=== PATIENT | male | born 1955 | race Caucasian/White ===

== ENCOUNTER → 2017-02-03 | Outpatient (CLI) | payer OTHER, MEDICARE ==
--- NOTE | 2017-02-03 14:13 | CT ---
EXAMINATION TYPE: CT abdomen pelvis wo con DATE OF EXAM: 02/03/2017 COMPARISON: NONE INDICATION: Presence of pain pump DLP: 560.8 mGycm, Automated exposure control for dose reduction was used. CONTRAST: 0 mL of Omnipaque 300. Study performed without Oral Contrast TECHNIQUE: Axial images were obtained from above the diaphragm to the pubic rami in the axial plane a t 5 mm thick sections. Reconstructed images are reviewed on the computer in the coronal plane. FINDINGS: Limited CT sections are obtained the lung bases. The lung bases are clear. There is a device over t he left anterior abdomen. Additional electronic devices over the posterior left flank. CT ABDOMEN: Liver: Normal Spleen: Normal Pancreas: Normal Adrenal glands: The adrenal glands are normal. Gallbladder: Normal Kidneys: No masses are evident. No hydronephrosis is present. No cysts are present. Aorta: Essentially normal. Inferior vena cava: There is a filter within the inferior vena cava. CT PELVIS: Loops of bowel within the abdomen and pelvis are normal. Postsurgical changes are within the prox imal transverse colon. No contrast was utilized limiting the evaluation. The ascending colon may be r esected. Fecal debris is within the distal colon. Appendix: Not identified Urinary bladder: Asymmetric thickening of the urinary bladder is present with thickening along the le ft border. Genitourinary structures: Prostate contains calcification. Osseous structures: Right hip prosthesis is present. Old pubic ramus fractures present on the right. Postsurgical changes at the symphysis pubis. Screws present at the level of the sacrum. Facet degener ative changes present IMPRESSIONS: 1. Multiple postsurgical changes. 2. No abnormal fluid collection adjacent to the visualized electronic devices within the [id number] w. 3. Thickening urinary bladder wall asymmetric. Consider additional workup
== END | disposition home or self-care (01) ==
LOC: RADCTMAIN 12:28
PROVIDERS: ATTEND Surgery
DX: N32.89 Other specified disorders of bladder (principal); Z96.89 Presence of other specified functional implants; Z98.890 Other specified postprocedural states
CPT/HCPCS: 74176

== ENCOUNTER 2018-02-25 14:27 | Inpatient (IN) | payer MEDICARE ==
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
[2018-02-25 15:38] LABS: Anisocytosis Slight; Basophils % (A) 0 %; Eosinophils # (A) 0.3 k/uL (0-0.7); Eosinophils % (A) 6 %; HCT 32.2 % (39.0-53.0); HGB 9.9 gm/dL (13.0-17.5); Hypochromasia Marked; Lymphocytes # (A) 1.5 k/uL (1.0-4.8); Lymphocytes % (A) 27 %; MCH 24.7 pg (25.0-35.0); MCHC 30.6 g/dL (31.0-37.0); MCV 80.7 fL (80.0-100.0); Mean Platelet Volume 7.4; Microcytosis Slight; Monocytes # (A) 0.4 k/uL (0-1.0); Monocytes % (A) 6 %; Neutrophils # (A) 3.2 k/uL (1.3-7.7); Neutrophils % (A) 58 %; Platelet Count 412 k/uL (150-450); Poikilocytosis Slight; RBC 3.99 m/uL (4.30-5.90); RDW 17.1 % (11.5-15.5); WBC 5.6 k/uL (3.8-10.6)
[2018-02-25 15:54] LABS: Acetaminophen <10.0 ug/mL; Alcohol <10 mg/dL; Anion Gap 8 mmol/L; Blood Urea Nitrogen 13 mg/dL (9-20); Calcium 8.6 mg/dL (8.4-10.2); Carbon Dioxide 28 mmol/L (22-30); Chloride 107 mmol/L (98-107); Glucose 91 mg/dL (74-99); Potassium 3.6 mmol/L (3.5-5.1); Salicylate <1.0 mg/dL; Sodium 143 mmol/L (137-145)
[2018-02-25 18:15] LABS: Appearance,Urine Clear (Clear); Bilirubin,Urine Negative (Negative); Blood,Urine Negative (Negative); Color,Urine Yellow; Glucose,Urine (UA) Negative (Negative); Ketones,Urine Negative (Negative); Leukocyte Esterase,Urine Negative (Negative); Mucus,Urine Rare /hpf; Nitrite,Urine Negative (Negative); PH, Urine 6.5 (5.0-8.0); Protein,Urine 1+ (Negative); RBC,Urine <1 /hpf (0-5); Specific Gravity,Urine 1.022 (1.001-1.035); Squamous Epithelial Cell,Urine 1 /hpf (0-4); WBC,Urine 1 /hpf (0-5)
[2018-02-25 18:20] LABS: Cocaine Screen,Urine Not Detected (NotDetected); Phencyclidine Screen,Urine Not Detected (NotDetected); Urn Cannabinoid Scrn Not Detected (NotDetected)
[2018-02-25 18:21] LABS: Amphetamine Screen,Urine Detected (NotDetected); Barbiturate Screen,Urine Not Detected (NotDetected); Benzodiazepines Screen,Urine Detected (NotDetected); Methadone Screen, Urine Not Detected (NotDetected); Opiate Screen,Urine Detected (NotDetected); Oxycodone Screen, Urine Not Detected (NotDetected); Tricyclic Antidepressant,Urine Detected (NotDetected)
[2018-02-25] MEDS ORDERED: LORazepam 1 MG TAB PO STA (19:11)
[2018-02-25] MEDS ORDERED: MAGNESIUM HYDROXIDE 2,400 MG/10 ML CUP PO PRN (19:45)
[2018-02-25] MEDS ORDERED: ZIPRASIDONE 20 MG VIAL IM PRN (19:45)
[2018-02-25] MEDS ORDERED: MAG HYDROX/AL HYDROX/SIMETH 30 ML CUP PO PRN (19:45)
[2018-02-25] MEDS ORDERED: ACETAMINOPHEN TAB 325 MG TAB PO PRN (19:45)
[2018-02-25] MEDS ORDERED: IBUPROFEN 800 MG TAB PO PRN (19:51)
[2018-02-25] MEDS ORDERED: HYDROcodone/APAP 5-325MG 1 EACH TAB PO PRN (19:51)
[2018-02-25] MEDS: CHOLECALCIFEROL 1,000 UNIT TAB PO SCH (21:19)
[2018-02-25] MEDS: ATORVASTATIN 40 MG TAB PO SCH (21:19)
[2018-02-25] MEDS: ARTIFICIAL TEARS OINTMENT 3.5 GM TUBE BOTH EYES SCH (21:19)
[2018-02-25] MEDS: ARTIFICIAL TEARS-HYPROMELLOSE DROPS 15 ML BTL BOTH EYES SCH (21:19)
[2018-02-25] MEDS: GABAPENTIN 300 MG CAP PO SCH (21:20)
[2018-02-25] MEDS: BACLOFEN 10 MG TAB PO SCH (21:20)
[2018-02-25] MEDS: MELATONIN 5 MG TABLET PO SCH (21:20)
[2018-02-25] MEDS: QUEtiapine 50 MG TAB PO SCH (21:20)
[2018-02-25] MEDS: DONEPEZIL 10 MG TAB PO SCH (21:20)
[2018-02-25] MEDS: DIAZEPAM 5 MG TAB PO SCH (21:20)
[2018-02-26] MEDS ORDERED: VENLAFAXINE HCL 75 MG TAB PO SCH (09:00)
[2018-02-26] MEDS ORDERED: HYDROcodone/APAP 10-325MG 1 EACH TAB PO PRN (09:28)
[2018-02-26] MEDS: CHOLECALCIFEROL 1,000 UNIT TAB PO SCH ×2 (10:34→21:31)
[2018-02-26] MEDS: BACLOFEN 10 MG TAB PO SCH ×3 (10:34→21:50)
[2018-02-26] MEDS: ASPIRIN 81 MG PO SCH (10:34)
[2018-02-26] MEDS: GABAPENTIN 300 MG CAP PO SCH ×3 (10:34→21:26)
[2018-02-26] MEDS: ARTIFICIAL TEARS-HYPROMELLOSE DROPS 15 ML BTL BOTH EYES SCH ×3 (10:35→21:28)
[2018-02-26] MEDS: VENLAFAXINE HCL ER 150 MG CAP PO SCH (10:37)
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
--- NOTE | 2018-02-26 15:48 | XR ---
EXAMINATION TYPE: XR hand complete LT DATE OF EXAM: 02/26/2018 CLINICAL HISTORY: pain TECHNIQUE: Frontal, lateral and oblique images of the left hand are obtained. COMPARISON: None. FINDINGS: There is no acute fracture/dislocation evident. The joint spaces appear mildly narrowed. T he overlying soft tissue appears unremarkable. IMPRESSION: There is no acute fracture or dislocation. ICD 10 NO FRACTURE, INITIAL EVALUATION
--- NOTE | 2018-02-26 15:50 | XR ---
EXAMINATION TYPE: XR foot complete RT DATE OF EXAM: 02/26/2018 CLINICAL HISTORY: pain TECHNIQUE: Frontal, lateral and oblique images of the right foot are obtained. COMPARISON: None. FINDINGS: There is no acute fracture/dislocation evident. The joint spaces appear within normal richard its. The overlying soft tissue appears unremarkable. IMPRESSION: There is no acute fracture or dislocation. ICD 10 NO FRACTURE, INITIAL EVALUATION
[2018-02-26] MEDS ORDERED: QUEtiapine 50 MG TAB PO SCH (17:30)
[2018-02-26] MEDS: ATORVASTATIN 40 MG TAB PO SCH (21:26)
[2018-02-26] MEDS: QUEtiapine 50 MG TAB PO SCH (21:26)
[2018-02-26] MEDS: DIAZEPAM 5 MG TAB PO SCH (21:26)
[2018-02-26] MEDS: MELATONIN 5 MG TABLET PO SCH (21:26)
[2018-02-26] MEDS: DONEPEZIL 10 MG TAB PO SCH (21:28)
[2018-02-26] MEDS: ARTIFICIAL TEARS OINTMENT 3.5 GM TUBE BOTH EYES SCH (21:30)
[2018-02-26 21:36] LABS: Hemoglobin A1C 5.9 % (4.0-6.0)
[2018-02-26] MEDS: MORPHINE SULFATE ER 15 MG TABLET PO SCH (21:49)
[2018-02-27] MEDS: HYDROcodone/APAP 5-325MG 1 EACH TAB PO PRN ×2 (06:18→17:02)
[2018-02-27] MEDS: ARTIFICIAL TEARS-HYPROMELLOSE DROPS 15 ML BTL BOTH EYES SCH ×3 (10:11→21:17)
[2018-02-27] MEDS: CHOLECALCIFEROL 1,000 UNIT TAB PO SCH ×2 (10:12→21:17)
[2018-02-27] MEDS: GABAPENTIN 300 MG CAP PO SCH ×3 (10:12→21:16)
[2018-02-27] MEDS: VENLAFAXINE HCL ER 150 MG CAP PO SCH (10:12)
[2018-02-27] MEDS: BACLOFEN 10 MG TAB PO SCH ×3 (10:12→21:15)
[2018-02-27] MEDS: ASPIRIN 81 MG PO SCH (10:12)
[2018-02-27] MEDS: MORPHINE SULFATE ER 15 MG TABLET PO SCH ×2 (10:13→21:16)
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
[2018-02-27] MEDS: MELATONIN 5 MG TABLET PO SCH (21:15)
[2018-02-27] MEDS: QUEtiapine 200 MG TAB PO SCH (21:15)
[2018-02-27] MEDS: ARTIFICIAL TEARS OINTMENT 3.5 GM TUBE BOTH EYES SCH (21:15)
[2018-02-27] MEDS: DONEPEZIL 10 MG TAB PO SCH (21:16)
[2018-02-27] MEDS: ATORVASTATIN 40 MG TAB PO SCH (21:16)
[2018-02-27] MEDS: DIAZEPAM 5 MG TAB PO SCH (21:17)
[2018-02-28] MEDS: CHOLECALCIFEROL 1,000 UNIT TAB PO SCH ×2 (09:08→20:40)
[2018-02-28] MEDS: ARTIFICIAL TEARS-HYPROMELLOSE DROPS 15 ML BTL BOTH EYES SCH ×3 (09:08→21:25)
[2018-02-28] MEDS: ASPIRIN 81 MG PO SCH (09:08)
[2018-02-28] MEDS: BACLOFEN 10 MG TAB PO SCH ×4 (09:08→22:23)
[2018-02-28] MEDS: GABAPENTIN 300 MG CAP PO SCH ×4 (09:09→22:23)
[2018-02-28] MEDS: QUEtiapine 25 MG TAB PO SCH (09:09)
[2018-02-28] MEDS: VENLAFAXINE HCL ER 150 MG CAP PO SCH (09:09)
[2018-02-28] MEDS: MORPHINE SULFATE ER 15 MG TABLET PO SCH ×2 (09:09→20:39)
[2018-02-28 12:05] VITALS: BMI 27.4
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
[2018-02-28] MEDS: HYDROcodone/APAP 5-325MG 1 EACH TAB PO PRN (17:29)
[2018-02-28] MEDS: BACITRACIN 500 UNIT/GM OINT 28.4 GM TUBE TOPICAL SCH ×2 (20:39→21:43)
[2018-02-28] MEDS: MELATONIN 5 MG TABLET PO SCH (20:39)
[2018-02-28] MEDS: ATORVASTATIN 40 MG TAB PO SCH (20:39)
[2018-02-28] MEDS: ARTIFICIAL TEARS OINTMENT 3.5 GM TUBE BOTH EYES SCH ×2 (20:39→21:27)
[2018-02-28] MEDS: QUEtiapine 200 MG TAB PO SCH (20:39)
[2018-02-28] MEDS: DIAZEPAM 5 MG TAB PO SCH (20:40)
[2018-02-28] MEDS: DONEPEZIL 10 MG TAB PO SCH (20:40)
--- NOTE | 2018-02-28 21:02 | PN ---
PROGRESS NOTE DATE OF SERVICE: 02/28/2018 PRESENT COMPLAINT: Wound on the right toe. INTERVAL HISTORY: This patient is admitted to the psych unit with depression. Patient has ulcer on the right big toe and second toe. He thinks it has come on for about a month. The patient has not been putting any medications, has not sought medical attention for the same. Denies any pain. There is no drainage. REVIEW OF SYSTEMS: Done for constitutional, cardiovascular, GI, pulmonary; relevant findings as above. CURRENT MEDICATIONS: Reviewed. EXAMINATION: Temperature 98.2, pulse 73, respiratory 20, blood pressure 126/78 pulse ox 95% on room air. GENERAL APPEARANCE: Sitting up, comfortable. EYES: Pupils. Conjunctivae normal. HEENT: External nose and ears normal. Oral cavity normal. NECK: JVD not raised. Mass not palpable. RESPIRATORY: Effort normal. LUNGS: Diminished breath sounds. CARDIOVASCULAR: First and second sounds normal. No edema. ABDOMEN: Soft, nontender. Liver and spleen not palpable. MUSCULOSKELETAL/EXTREMITIES: Patient has an ulcer on the dorsum of the right foot 2nd toe with some ascending cellulitis. Also dryness of the right big toe with minimal tenderness. INVESTIGATIONS: White count 5.6, hemoglobin 9.9. ASSESSMENT: 1. Acute cellulitis with wound on the right 2nd toe, probably from local trauma, and dry skin with superficial ulcer on the right foot big toe. 2. Chronic nicotine dependence. Patient is a cigarette smoker. 3. Peripheral arterial disease. 4. Hypercholesteremia for which patient is on Lipitor. 5. Chronic muscle spasms for which patient takes baclofen. 6. Chronic pain for which patient is on long-acting morphine and Marvin and Neurontin. PLAN: At this point, we will start the patient on Keflex 500 mg 4 times a day for a total of 10 days. Will also use bacitracin ointment with dressing. The patient should follow up with Dr. Modesto Soni upon discharge. Care was discussed with the patient. Thank you, Dr. Schroeder. MMJULIETAL / KAIN: [phone] /
[2018-02-28] MEDS: CEPHALEXIN 500 MG CAP PO SCH ×2 (21:16→21:43)
[2018-03-01] MEDS: HYDROcodone/APAP 5-325MG 1 EACH TAB PO PRN (05:50)
[2018-03-01] MEDS: ASPIRIN 81 MG PO SCH (08:39)
[2018-03-01] MEDS: BACLOFEN 10 MG TAB PO SCH ×3 (08:39→21:36)
[2018-03-01] MEDS: CEPHALEXIN 500 MG CAP PO SCH ×4 (08:39→21:36)
[2018-03-01] MEDS: BACITRACIN 500 UNIT/GM OINT 28.4 GM TUBE TOPICAL SCH ×2 (08:39→21:36)
[2018-03-01] MEDS: ARTIFICIAL TEARS-HYPROMELLOSE DROPS 15 ML BTL BOTH EYES SCH ×4 (08:39→21:41)
[2018-03-01] MEDS: GABAPENTIN 300 MG CAP PO SCH ×3 (08:40→21:36)
[2018-03-01] MEDS: MORPHINE SULFATE ER 15 MG TABLET PO SCH ×2 (08:40→20:48)
[2018-03-01] MEDS: CHOLECALCIFEROL 1,000 UNIT TAB PO SCH ×2 (08:40→20:48)
[2018-03-01] MEDS: QUEtiapine 25 MG TAB PO SCH (08:41)
[2018-03-01] MEDS: VENLAFAXINE HCL ER 150 MG CAP PO SCH (08:41)
[2018-03-01 13:04] LABS: Appearance,Urine Clear (Clear); Bilirubin,Urine Negative (Negative); Blood,Urine Negative (Negative); Color,Urine Light Yellow; Glucose,Urine (UA) Negative (Negative); Ketones,Urine Negative (Negative); Leukocyte Esterase,Urine Negative (Negative); Nitrite,Urine Negative (Negative); Protein,Urine Negative (Negative); Specific Gravity,Urine 1.009 (1.001-1.035); Urobilinogen,Urine <2.0 mg/dL (<2.0)
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
[2018-03-01] MEDS: DIAZEPAM 5 MG TAB PO SCH (20:48)
[2018-03-01] MEDS: MELATONIN 5 MG TABLET PO SCH (20:48)
[2018-03-01] MEDS: QUEtiapine 200 MG TAB PO SCH (20:48)
[2018-03-01] MEDS: DONEPEZIL 10 MG TAB PO SCH (20:48)
[2018-03-01] MEDS: ATORVASTATIN 40 MG TAB PO SCH (20:48)
[2018-03-01] MEDS: ARTIFICIAL TEARS OINTMENT 3.5 GM TUBE BOTH EYES SCH (20:48)
[2018-03-02] MEDS: MORPHINE SULFATE ER 15 MG TABLET PO SCH ×2 (08:35→20:42)
[2018-03-02] MEDS: ARTIFICIAL TEARS-HYPROMELLOSE DROPS 15 ML BTL BOTH EYES SCH ×3 (08:35→20:44)
[2018-03-02] MEDS: QUEtiapine 25 MG TAB PO SCH (08:35)
[2018-03-02] MEDS: BACLOFEN 10 MG TAB PO SCH ×3 (08:35→20:34)
[2018-03-02] MEDS: ASPIRIN 81 MG PO SCH (08:35)
[2018-03-02] MEDS: CHOLECALCIFEROL 1,000 UNIT TAB PO SCH ×2 (08:35→20:34)
[2018-03-02] MEDS: CEPHALEXIN 500 MG CAP PO SCH ×4 (08:35→20:48)
[2018-03-02] MEDS: GABAPENTIN 300 MG CAP PO SCH ×3 (08:35→20:48)
[2018-03-02] MEDS: VENLAFAXINE HCL ER 150 MG CAP PO SCH (08:35)
[2018-03-02] MEDS: BACITRACIN 500 UNIT/GM OINT 28.4 GM TUBE TOPICAL SCH ×2 (08:43→20:40)
[2018-03-02 11:55] LABS: Urine Alcohol Negative (Negative); Urine Barbiturate Negative (Negative); Urine Cocaine Negative (Negative); Urine Methadone Negative (Negative); Urine Opiates Positive (Negative); Urine Phencyclidine Negative (Negative)
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
[2018-03-02] MEDS: DIAZEPAM 5 MG TAB PO SCH (20:34)
[2018-03-02] MEDS: ARTIFICIAL TEARS OINTMENT 3.5 GM TUBE BOTH EYES SCH (20:34)
[2018-03-02] MEDS: QUEtiapine 200 MG TAB PO SCH (20:34)
[2018-03-02] MEDS: MELATONIN 5 MG TABLET PO SCH (20:34)
[2018-03-02] MEDS: DONEPEZIL 10 MG TAB PO SCH (20:35)
[2018-03-02] MEDS: ATORVASTATIN 40 MG TAB PO SCH (20:35)
[2018-03-03] MEDS: HYDROcodone/APAP 5-325MG 1 EACH TAB PO PRN (05:40)
[2018-03-03] MEDS: BACLOFEN 10 MG TAB PO SCH ×3 (05:54→21:14)
[2018-03-03] MEDS: ARTIFICIAL TEARS-HYPROMELLOSE DROPS 15 ML BTL BOTH EYES SCH ×4 (09:11→21:26)
[2018-03-03] MEDS: BACITRACIN 500 UNIT/GM OINT 28.4 GM TUBE TOPICAL SCH ×2 (09:12→21:13)
[2018-03-03] MEDS: ASPIRIN 81 MG PO SCH (09:12)
[2018-03-03] MEDS: CEPHALEXIN 500 MG CAP PO SCH ×4 (09:13→21:13)
[2018-03-03] MEDS: QUEtiapine 25 MG TAB PO SCH (09:13)
[2018-03-03] MEDS: MORPHINE SULFATE ER 15 MG TABLET PO SCH ×2 (09:13→21:14)
[2018-03-03] MEDS: CHOLECALCIFEROL 1,000 UNIT TAB PO SCH ×2 (09:13→21:14)
[2018-03-03] MEDS: GABAPENTIN 300 MG CAP PO SCH ×3 (09:13→23:47)
[2018-03-03] MEDS: VENLAFAXINE HCL ER 150 MG CAP PO SCH (11:00)
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
[2018-03-03] MEDS: ATORVASTATIN 40 MG TAB PO SCH (21:13)
[2018-03-03] MEDS: QUEtiapine 200 MG TAB PO SCH (21:13)
[2018-03-03] MEDS: ARTIFICIAL TEARS OINTMENT 3.5 GM TUBE BOTH EYES SCH (21:13)
[2018-03-03] MEDS: DONEPEZIL 10 MG TAB PO SCH (21:13)
[2018-03-03] MEDS: DIAZEPAM 5 MG TAB PO SCH (21:14)
[2018-03-03] MEDS: MELATONIN 5 MG TABLET PO SCH (21:14)
[2018-03-04] MEDS: MORPHINE SULFATE ER 15 MG TABLET PO SCH ×2 (07:57→22:06)
[2018-03-04] MEDS: BACLOFEN 10 MG TAB PO SCH ×3 (07:57→22:07)
[2018-03-04] MEDS: CEPHALEXIN 500 MG CAP PO SCH ×4 (07:57→22:06)
[2018-03-04] MEDS: QUEtiapine 25 MG TAB PO SCH (07:57)
[2018-03-04] MEDS: VENLAFAXINE HCL ER 150 MG CAP PO SCH (07:57)
[2018-03-04] MEDS: GABAPENTIN 300 MG CAP PO SCH ×3 (07:57→22:06)
[2018-03-04] MEDS: ASPIRIN 81 MG PO SCH (07:57)
[2018-03-04] MEDS: ARTIFICIAL TEARS-HYPROMELLOSE DROPS 15 ML BTL BOTH EYES SCH ×4 (07:57→22:13)
[2018-03-04] MEDS: CHOLECALCIFEROL 1,000 UNIT TAB PO SCH ×2 (07:59→22:06)
[2018-03-04] MEDS: BACITRACIN 500 UNIT/GM OINT 28.4 GM TUBE TOPICAL SCH ×2 (08:00→21:18)
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
[2018-03-04] MEDS: HYDROcodone/APAP 5-325MG 1 EACH TAB PO PRN (18:53)
[2018-03-04] MEDS: DONEPEZIL 10 MG TAB PO SCH (22:06)
[2018-03-04] MEDS: QUEtiapine 200 MG TAB PO SCH (22:06)
[2018-03-04] MEDS: ARTIFICIAL TEARS OINTMENT 3.5 GM TUBE BOTH EYES SCH (22:06)
[2018-03-04] MEDS: MELATONIN 5 MG TABLET PO SCH (22:06)
[2018-03-04] MEDS: DIAZEPAM 5 MG TAB PO SCH (22:06)
[2018-03-04] MEDS: ATORVASTATIN 40 MG TAB PO SCH (22:06)
[2018-03-05] MEDS: BACITRACIN 500 UNIT/GM OINT 28.4 GM TUBE TOPICAL SCH ×2 (09:12→20:36)
[2018-03-05] MEDS: ASPIRIN 81 MG PO SCH (09:12)
[2018-03-05] MEDS: CHOLECALCIFEROL 1,000 UNIT TAB PO SCH ×2 (09:13→21:07)
[2018-03-05] MEDS: CEPHALEXIN 500 MG CAP PO SCH ×4 (09:13→21:07)
[2018-03-05] MEDS: GABAPENTIN 300 MG CAP PO SCH ×3 (09:13→21:07)
[2018-03-05] MEDS: QUEtiapine 25 MG TAB PO SCH (09:13)
[2018-03-05] MEDS: VENLAFAXINE HCL ER 150 MG CAP PO SCH (09:13)
[2018-03-05] MEDS: BACLOFEN 10 MG TAB PO SCH ×3 (09:13→21:07)
[2018-03-05] MEDS: MORPHINE SULFATE ER 15 MG TABLET PO SCH ×2 (09:15→21:08)
[2018-03-05] MEDS: ARTIFICIAL TEARS-HYPROMELLOSE DROPS 15 ML BTL BOTH EYES SCH ×3 (09:17→21:17)
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
[2018-03-05] MEDS: DIAZEPAM 5 MG TAB PO SCH (21:07)
[2018-03-05] MEDS: DONEPEZIL 10 MG TAB PO SCH (21:07)
[2018-03-05] MEDS: QUEtiapine 200 MG TAB PO SCH (21:07)
[2018-03-05] MEDS: ATORVASTATIN 40 MG TAB PO SCH (21:07)
[2018-03-05] MEDS: MELATONIN 5 MG TABLET PO SCH (21:08)
[2018-03-05] MEDS: ARTIFICIAL TEARS OINTMENT 3.5 GM TUBE BOTH EYES SCH (21:18)
[2018-03-06 06:38] VITALS: BP 120/56; PULSE 73; RESP 16; TEMP 98.1
[2018-03-06] MEDS: MORPHINE SULFATE ER 15 MG TABLET PO SCH (09:07)
[2018-03-06] MEDS: CHOLECALCIFEROL 1,000 UNIT TAB PO SCH (09:07)
[2018-03-06] MEDS: VENLAFAXINE HCL ER 150 MG CAP PO SCH (09:07)
[2018-03-06] MEDS: GABAPENTIN 300 MG CAP PO SCH (09:07)
[2018-03-06] MEDS: QUEtiapine 25 MG TAB PO SCH (09:07)
[2018-03-06] MEDS: BACLOFEN 10 MG TAB PO SCH (09:07)
[2018-03-06] MEDS: ASPIRIN 81 MG PO SCH (09:07)
[2018-03-06] MEDS: CEPHALEXIN 500 MG CAP PO SCH ×2 (09:07→12:48)
[2018-03-06] MEDS: ARTIFICIAL TEARS-HYPROMELLOSE DROPS 15 ML BTL BOTH EYES SCH (09:09)
[2018-03-06] MEDS: BACITRACIN 500 UNIT/GM OINT 28.4 GM TUBE TOPICAL SCH ×2 (09:09→12:36)
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
== END 2018-03-06 15:46 | disposition home or self-care (01) | DRG 881 ==
LOC: EC 14:27 → 3MHU 19:23
PROVIDERS: ADMIT Psychiatry & Neurology Psychiatry; ATTEND Psychiatry & Neurology Psychiatry
DX: F32.9 Major depressive disorder, single episode, unspecified (principal); R45.851 Suicidal ideations; L97.511 Non-pressure chronic ulcer of other part of right foot limited to breakdown of skin; L97.521 Non-pressure chronic ulcer of other part of left foot limited to breakdown of skin; R41.89 Other symptoms and signs involving cognitive functions and awareness; F90.9 Attention-deficit hyperactivity disorder, unspecified type; F41.9 Anxiety disorder, unspecified; I73.9 Peripheral vascular disease, unspecified; L03.031 Cellulitis of right toe; M21.371 Foot drop, right foot; G89.29 Other chronic pain; F17.210 Nicotine dependence, cigarettes, uncomplicated; Z71.6 Tobacco abuse counseling; Z79.82 Long term (current) use of aspirin; Z79.891 Long term (current) use of opiate analgesic; Z79.899 Other long term (current) drug therapy; Z87.820 Personal history of traumatic brain injury; Z87.81 Personal history of (healed) traumatic fracture; Z86.14 Personal history of Methicillin resistant Staphylococcus aureus infection; Z93.3 Colostomy status; Z96.0 Presence of urogenital implants; Z88.8 Allergy status to other drugs, medicaments and biological substances; E78.00 Pure hypercholesterolemia, unspecified; Z87.828 Personal history of other (healed) physical injury and trauma; M62.838 Other muscle spasm
CPT/HCPCS: 36415; 80048; 80061; 80306; 80320; 81001; 81003; 82075; 83036; 83520; 84443; 85025; 93005; 99285

== ENCOUNTER 2018-04-09 10:59 | Day surgery (SDC) | payer MEDICARE ==
[2018-04-07 13:39] VITALS: BMI 18.7
[~2018-04-09 10:59] MED LIST: LACTATED RINGERS 1,000 ML IV SCH
[2018-04-09 11:48] VITALS: RESP 16; TEMP 98.1
[2018-04-09] MEDS ORDERED: LIDOCAINE 1% INJ 10MG/ML (20 ML MDV) ONE (12:32)
[2018-04-09] MEDS ORDERED: PROPOFOL 10 MG/ML 20 ML VIAL IV ONE (12:32)
--- NOTE | 2018-04-09 13:10 | P.PCN ---
Date of Procedure: 04/09/18 Procedure(s) Performed: Procedures: 1. Esophagogastroduodenoscopy and biopsy. 2. Attempted colonoscopy. Preoperative diagnosis: Iron deficiency anemia. Postoperative diagnosis: 1. Small sliding hiatal hernia with no obvious esophagitis or complicated reflux disease. 2. Mild antral gastritis. 3. Could not advance the colonoscopes safely proximal to the distal sigmoid. 4. Patient will undergo barium enema to complete this evaluation. Preparation: HalfLytely prep. Sedation: Was provided by anesthesia. Brief clinical history: The patient is a 62-year-old male who is scheduled for this evaluation because of iron deficiency anemia. The patient had no prior exams and this evaluation is to assess for peptic ulcer disease, neoplasia or other pathology. Procedure: With the patient on his left lateral decubitus position and after informed consent and adequate sedation, I passed the Olympus-GIF 160 video upper endoscope through the cricopharyngeus down the esophagus. GE junction was around 39 cm from the incisors and there was a small sliding hiatal hernia but no obvious esophagitis or complicated reflux disease. The endoscope was then passed into the stomach which was insufflated with air and inspected in detail including the retroflex view in the cardia. There was some minimal mottling and erythema in the antrum but no ulcers or erosions. Pyloric channel , duodenal bulb, post bulbar area and descending duodenum appeared healthy. Because of his iron deficiency anemia, I obtained biopsies from the duodenum in addition to biopsies from the antrum and esophagus then the endoscope was withdrawn and I proceeded with the colonoscopy. Perianal area did not show any fissures or fistulas. There were no masses felt on digital rectal examination. The Olympus CFQ 160L video colonoscope was initially used and was inserted in the rectum in the usual fashion. I was not able to advance it safely proximal to the distal sigmoid so I exchanged it for the pediatric colonoscope. I was not able to advance this scope safely either. In the rectum and distal sigmoid no obvious pathology or bleeding was noted. The patient tolerated the procedure well. Plan: The patient was reassured. Will try to get him to have an air-contrast barium enema today to complete his evaluation. Further plans based on his course and biopsy results as well as the results of the barium enema. I will keep you updated on his progress.
[2018-04-09 13:20] VITALS: BP 117/69; PULSE 53
--- NOTE | 2018-04-09 17:54 | FL ---
EXAMINATION TYPE: FL single contrast barium enema DATE OF EXAM: 04/09/2018 COMPARISON: Correlation CT 02/03/2017 HISTORY: 62-year-old male incomplete colonoscopy TECHNIQUE: A single contrast barium enema study is performed. FINDINGS: Tube Blower view of the abdomen shows prominent air throughout the colon and within right abdominal small b owel loops. There is an IVC filter, spinal stimulator generator with leads extending to the lower tho racic spinal canal, percutaneous screw fixation of the left SI joint, plate and screw fixation across the pubic symphysis, and antegrade intramedullary nailing of the proximal right femur partially visu alized. Surgical material projects at the right abdomen. Mesh material projecting along the anterior lower pelvis. Nonobstructive bowel gas pattern. Single contrast exam causes some limitation assessment of small polyps. There is evidence of prior pa rtial right hemicolectomy with ileocolonic anastomosis at the level of the hepatic flexure. No annular or constricting lesion is identified throughout the colon. No sizable polyp is seen. Again , assessment for polyps is limited. There is prominent reflux into multiple ileal small bowel loops in the right side of the abdomen. The ileocolonic anastomosis is visualized. IMPRESSION: 1. Prior right hemicolectomy with ileocolonic anastomosis at the level of the hepatic flexure. 2. Study was performed as a single contrast barium enema due to patient's condition. There is no mert lar or constricting lesion or sizable polyp. Assessment for small polyps is limited on this single co ntrast study.
== END 2018-04-09 13:59 | disposition home or self-care (01) ==
LOC: ORWHC2ENDO 10:59
DX: K29.50 Unspecified chronic gastritis without bleeding (principal); D50.9 Iron deficiency anemia, unspecified; K44.9 Diaphragmatic hernia without obstruction or gangrene; E78.5 Hyperlipidemia, unspecified; K29.80 Duodenitis without bleeding; K21.0 Gastro-esophageal reflux disease with esophagitis; Z72.0 Tobacco use; Z79.891 Long term (current) use of opiate analgesic; Z79.82 Long term (current) use of aspirin; Z79.1 Long term (current) use of non-steroidal anti-inflammatories (NSAID); Z79.899 Other long term (current) drug therapy; Z87.820 Personal history of traumatic brain injury; Z88.8 Allergy status to other drugs, medicaments and biological substances
CPT/HCPCS: 88305; 74270; 43239; 45330; J2001; J2704

== ENCOUNTER → 2018-06-04 | Outpatient (CLI) | payer MEDICARE ==
--- NOTE | 2018-06-05 09:16 | XR ---
EXAMINATION TYPE: XR Hip Complete RT DATE OF EXAM: 06/04/2018 COMPARISON: None HISTORY: Fall, pain TECHNIQUE: 2 view right hip FINDINGS: Femoral head articulates with the acetabulum. Medullary prema is present from proximal femora l fracture. IMPRESSION: 1. No acute fracture.
== END | disposition home or self-care (01) ==
LOC: RADXRMAIN 16:27
PROVIDERS: ATTEND Physician Assistant
DX: S79.911A Unspecified injury of right hip, initial encounter (principal)
CPT/HCPCS: 73502

== ENCOUNTER → 2018-06-22 | Outpatient (CLI) | payer OTHER, MEDICARE ==
[2018-06-22 08:55] LABS: Anisocytosis Slight; HCT 32.4 % (39.0-53.0); HGB 9.2 gm/dL (13.0-17.5); Hypochromasia Marked; MCH 21.3 pg (25.0-35.0); MCHC 28.3 g/dL (31.0-37.0); MCV 75.2 fL (80.0-100.0); Mean Platelet Volume 6.2; Microcytosis Moderate; Platelet Count 402 k/uL (150-450); RBC 4.31 m/uL (4.30-5.90); RDW 17.8 % (11.5-15.5)
[2018-06-22 09:02] LABS: ALT 15 U/L (21-72); AST 14 U/L (17-59); Albumin 3.3 g/dL (3.5-5.0); Alkaline Phosphatase 86 U/L (38-126); Anion Gap 8 mmol/L; Blood Urea Nitrogen 19 mg/dL (9-20); Carbon Dioxide 26 mmol/L (22-30); Chloride 107 mmol/L (98-107); Glucose 113 mg/dL (74-99); Potassium 4.2 mmol/L (3.5-5.1); Sodium 141 mmol/L (137-145); Total Bilirubin 0.2 mg/dL (0.2-1.3); Total Protein 6.1 g/dL (6.3-8.2)
--- NOTE | 2018-06-22 16:30 | NM ---
EXAMINATION TYPE: NM bone 3 phase DATE OF EXAM: 06/22/2018 COMPARISON: Radiograph 02/26/2018 HISTORY: 63-year-old male evaluated for osteomyelitis. Patient with open sore, swelling, and redness of the right second toe for over 5 months. Technique: Triple phase bone scintigraphy was performed following the injection of 24.7 mCi Tc 99m MD P. Immediate and pool images and 4.5 hours post injection images acquired. Imaging was performed of the bilateral distal lower extremities. FINDINGS: Flow images show asymmetric right forefoot hyperemia. Pool images show focal increased uptake at the mid aspect of the right forefoot. Delayed images show corresponding intense focal uptake in the same area. IMPRESSION: Three-phase positive bone scan involving the right forefoot localizing to the region of the second to e. Given the patient's history of an ulcer in this location, findings are highly suggestive of osteom yelitis.
[2018-06-22 18:19] LABS: Hemoglobin A1C 5.8 % (4.0-6.0)
== END | disposition home or self-care (01) ==
LOC: RADNMMAIN 07:52
PROVIDERS: ATTEND Thoracic Surgery (Cardiothoracic Vascular Surgery)
DX: M86.8X8 Other osteomyelitis, other site (principal); E63.8 Other specified nutritional deficiencies
CPT/HCPCS: 84134; 80053; 85027; 83036; 78315; A9503

== ENCOUNTER 2018-07-04 08:42 | Emergency (ER) | payer OTHER, MEDICARE ==
[2018-07-04] MEDS ORDERED: SODIUM CHLORIDE 0.9% 1,000 ML IV STA (08:54)
[2018-07-04] MEDS ORDERED: RX INFO: IV CONTRAST WAS GIVEN 1 EACH MISC MISCELLANE PRN (08:55)
[2018-07-04] MEDS ORDERED: ONDANSETRON 4 MG/2 ML VIAL IVP STA (09:02)
[2018-07-04] MEDS ORDERED: MORPHINE SULFATE 4 MG/ML SYRINGE IVP STA (09:02)
[2018-07-04 09:25] LABS: ALT 19 U/L (21-72); AST 17 U/L (17-59); Alkaline Phosphatase 79 U/L (38-126); Anion Gap 7 mmol/L; Blood Urea Nitrogen 10 mg/dL (9-20); Calcium 8.9 mg/dL (8.4-10.2); Carbon Dioxide 27 mmol/L (22-30); Chloride 109 mmol/L (98-107); Glucose 91 mg/dL (74-99); Potassium 3.8 mmol/L (3.5-5.1); Sodium 143 mmol/L (137-145); Total Bilirubin 0.2 mg/dL (0.2-1.3); Total Protein 5.9 g/dL (6.3-8.2)
[2018-07-04 09:27] LABS: INR 1.1 (<1.2); Partial Thromboplastin Time 25.4 sec (22.0-30.0); Prothrombin Time 10.9 sec (9.0-12.0)
[2018-07-04 09:34] LABS: Anisocytosis Slight; Basophils % (A) 0 %; Eosinophils # (A) 0.3 k/uL (0-0.7); Eosinophils % (A) 5 %; HCT 31.5 % (39.0-53.0); HGB 9.1 gm/dL (13.0-17.5); Hypochromasia Marked; Lymphocytes # (A) 1.9 k/uL (1.0-4.8); Lymphocytes % (A) 29 %; MCH 21.3 pg (25.0-35.0); MCHC 29.1 g/dL (31.0-37.0); MCV 73.4 fL (80.0-100.0); Mean Platelet Volume 6.9; Microcytosis Moderate; Monocytes # (A) 0.6 k/uL (0-1.0); Monocytes % (A) 9 %; Neutrophils # (A) 3.6 k/uL (1.3-7.7); Neutrophils % (A) 55 %; Platelet Count 366 k/uL (150-450); RBC 4.29 m/uL (4.30-5.90); WBC 6.5 k/uL (3.8-10.6)
[2018-07-04] MEDS ORDERED: DIAZEPAM 5 MG/ML 2 ML INJ IVP STA (09:39)
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
--- NOTE | 2018-07-04 10:42 | CT ---
EXAMINATION TYPE: CT angio lower extremity RT DATE OF EXAM: 07/04/2018 10:27 AM COMPARISON: None HISTORY: Frank leg pain and cramping CT DLP: 754.7 mGycm Automated exposure control for dose reduction was used. TECHNIQUE: CTA of the right lower extremity was performed with IV Contrast, patient injected with 100 mL of Isov ue 370. Three-D imaging of the lower extremity vasculature was submitted for interpretation and perfo rmed at a separate workstation. FINDINGS: The aortoiliac bifurcation is within normal limits of size. Minimal nonhemodynamically significant pl aquing is present within the aortoiliac bifurcation and iliac arteries that appears nonhemodynamicall y significant. The right common femoral arteries and deep femoral arteries demonstrate multifocal areas of nonhemody namically significant stenosis (less than 50%) due to calcific and noncalcific atheromatous plaquing. There is a short segment stenosis of the right popliteal artery proximally 50% extending over 7 mm i n length. The right lower extremity demonstrates opacification of the branch vessels throughout with three-vessel opacification near the right ankle. Within the mid left common femoral artery there is a 1 cm long stenosis of approximately 50% on coron al image 15. Three-vessel opacification is seen near the left ankle joint. No evidence of vascular oc clusion. Incidental note is made of postsurgical changes of the left sacroiliac joint, right hip arthroplasty, postsurgical changes of the pubic symphysis and posttraumatic healed fractures of the pubic symphysi s and right inferior pubic ramus as well as ventral abdominal wall tiffanie, left rectus abdominous mu scular atrophy, and genitourinary tract reservoir in the right inguinal canal. There is severe atrophy of the posterior compartment in the right thigh, right gluteal and hip girdle musculature, and all compartments within the right lower limb. Postsurgical change of the right femu r is demonstrated with prior fracture deformity of the mid femur. Moderate tricompartmental arthropat hy of the knees is seen. Partial visualization of an infrarenal inferior vena cava filter and colonic anastomotic site are pre sent. Nonspecific sclerotic lesion is present of L4 and within the right iliac bone. IMPRESSION: 1. NO EVIDENCE OF VASCULAR OCCLUSION. BILATERAL PERIPHERAL ARTERIAL DISEASE WITH NUMEROUS FOCI OF NON HEMODYNAMICALLY SIGNIFICANT CALCIFIC AND NONCALCIFIC ATHEROMATOUS CHANGE. WITHIN THE LEFT COMMON FEMO RAL ARTERY THERE IS A 1 CM LONG AREA OF STENOSIS OF APPROXIMATELY 50%. WITHIN THE RIGHT POPLITEAL ART [place] THERE IS APPROXIMATELY 50% STENOSIS OVER A LENGTH OF 7 MM. 2. SEVERE MUSCULAR ATROPHY OF THE RIGHT HIP MUSCULATURE, GLUTEAL MUSCULATURE, POSTERIOR COMPARTMENT O F THE RIGHT THIGH, AND ALL COMPARTMENTS WITHIN THE REMAINDER OF THE RIGHT LOWER EXTREMITY WITH POSTSU RGICAL CHANGES OF THE RIGHT FEMUR ARE NOTED. 3. NONSPECIFIC SCLEROTIC FOCI WITHIN THE RIGHT PELVIS AND L4 VERTEBRAL BODY. CORRELATION WITH PSA IS RECOMMENDED.
[2018-07-04] MEDS ORDERED: ACET/COD 300 MG/30 MG STARTER PACK 6 TAB BTL PO STA (11:07)
[2018-07-04 11:41] VITALS: BP 143/46; PULSE 67; RESP 17; TEMP 98.6
== END 2018-07-04 11:22 | disposition home or self-care (01) ==
LOC: EC 08:42
DX: M62.838 Other muscle spasm (principal); E78.5 Hyperlipidemia, unspecified; I10 Essential (primary) hypertension; G62.9 Polyneuropathy, unspecified; F32.9 Major depressive disorder, single episode, unspecified; Z86.14 Personal history of Methicillin resistant Staphylococcus aureus infection; Z87.891 Personal history of nicotine dependence; Z79.82 Long term (current) use of aspirin; Z79.891 Long term (current) use of opiate analgesic; Z79.899 Other long term (current) drug therapy; Z88.1 Allergy status to other antibiotic agents
CPT/HCPCS: 36415; 80053; 83605; 85025; 85610; 85730; 73706; 99284; 96374; 96375 ×2; 96361; J2270; J3360; J2405; Q9967

== ENCOUNTER 2018-07-15 10:08 | Day surgery (SDC) | payer OTHER, MEDICARE ==
[2018-07-13 14:29] VITALS: BMI 26.6
[~2018-07-15 10:08] MED LIST changes: +HYDROmorphone 1 MG/ML 1 ML SYRINGE IVP PRN; +LIDOCAINE 1% 20 ML VIAL (10MG/ML) FOR IV START INTRADERMA PRN; +ONDANSETRON 4 MG/2 ML VIAL IVP ONE; +ceFAZolin IN SWFI 2 GM/20 ML SYRINGE IVP ONE
[2018-07-15 10:50] VITALS: RESP 16; TEMP 98.3
[2018-07-15] MEDS ORDERED: MIDAZOLAM 2 MG/2 ML VIAL ONE (11:41)
[2018-07-15] MEDS ORDERED: fentaNYL (PF) 50 MCG/ML 2 ML AMP ONE (11:41)
[2018-07-15] MEDS ORDERED: KETAMINE 10 MG/ML 20 ML VIAL ONE (11:41)
[2018-07-15] MEDS ORDERED: PROPOFOL 10 MG/ML 20 ML VIAL IV ONE (11:41)
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
--- NOTE | 2018-07-15 12:35 | P.PCN ---
Date of Procedure: 07/15/18 Preoperative Diagnosis: Neuropathic Ulcer right second toe with bony involvement Postoperative Diagnosis: Same Procedure(s) Performed: Amputation right second toe through proximal phalanx Anesthesia: MAC Surgeon: Afshin Petersen Estimated Blood Loss (ml): 5 Pathology: other (Disposal only) Condition: stable Disposition: PACU Indications for Procedure: The patient has an ulcer which was refractory and going down to the bone with bony involvement. Operative Findings: The proximal tissues appeared healthy with mild bleeding Description of Procedure: With the patient spine position, under benefit of IV sedation, we prepped and draped sterile fashion. We made an incision dorsally just proximal to the area of the ulceration. We then fashioned a posterior flap. We removed the distal portion of the toe through the joint. We then fashioned the posterior flap to fit. We irrigated with saline. We then closed with interrupted 4-0 nylon. Sterile dressings were applied. The patient tolerated the procedure well and was taken recovery area in stable condition.
[2018-07-15] MEDS ORDERED: HYDROcodone/APAP 5-325MG 1 EACH TAB PO ONE (13:17)
[2018-07-15 13:42] VITALS: PULSE 80
[2018-07-15 14:03] VITALS: BP 160/78
== END 2018-07-15 14:06 | disposition home or self-care (01) ==
LOC: OR 10:08
PROVIDERS: ATTEND Thoracic Surgery (Cardiothoracic Vascular Surgery)
DX: L97.516 Non-pressure chronic ulcer of other part of right foot with bone involvement without evidence of necrosis (principal); G62.9 Polyneuropathy, unspecified; M21.371 Foot drop, right foot; M62.542 Muscle wasting and atrophy, not elsewhere classified, left hand; K21.9 Gastro-esophageal reflux disease without esophagitis; E78.5 Hyperlipidemia, unspecified; I10 Essential (primary) hypertension; M79.604 Pain in right leg; M25.551 Pain in right hip; M54.9 Dorsalgia, unspecified; M25.511 Pain in right shoulder; G89.29 Other chronic pain; R32 Unspecified urinary incontinence; D64.9 Anemia, unspecified; Z79.2 Long term (current) use of antibiotics; Z79.82 Long term (current) use of aspirin; Z79.891 Long term (current) use of opiate analgesic; Z79.899 Other long term (current) drug therapy; Z99.3 Dependence on wheelchair; Z87.820 Personal history of traumatic brain injury; Z86.14 Personal history of Methicillin resistant Staphylococcus aureus infection; F17.210 Nicotine dependence, cigarettes, uncomplicated; Z88.2 Allergy status to sulfonamides
CPT/HCPCS: 28825; J2250; J3010; J2704; J0690

== ENCOUNTER 2018-08-07 18:04 | Emergency (ER) | payer MEDICARE ==
[2018-08-07 18:12] VITALS: TEMP 98.6
[2018-08-07] MEDS ORDERED: MORPHINE SULFATE 4 MG/ML SYRINGE IM STA (18:46)
[2018-08-07] MEDS ORDERED: KETOROLAC 30 MG/ML 1 ML VIAL IM STA (18:46)
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
--- NOTE | 2018-08-07 20:01 | US ---
EXAMINATION TYPE: US venous doppler duplex LE RT DATE OF EXAM: 08/07/2018 6:47 PM COMPARISON: NONE CLINICAL HISTORY: Pain. Right leg pain x 1 day, patient on blood thinners SIDE PERFORMED: Right TECHNIQUE: The lower extremity deep venous system is examined utilizing real time linear array sonog papi with graded compression, doppler sonography and color-flow sonography. VESSELS IMAGED: External Iliac Vein (EIV) Common Femoral Vein Deep Femoral Vein Greater Saphenous Vein * Femoral Vein Popliteal Vein Small Saphenous Vein * Proximal Calf Veins (* superficial vessels) Right Leg: Appears negative for DVT IMPRESSION: Normal exam. Normal right leg duplex venous sonogram.
[2018-08-07 20:13] VITALS: BP 154/80; PULSE 74; RESP 16
== END 2018-08-07 20:42 | disposition home or self-care (01) ==
LOC: EC 18:04
DX: M79.604 Pain in right leg (principal); M79.89 Other specified soft tissue disorders; E78.5 Hyperlipidemia, unspecified; G62.9 Polyneuropathy, unspecified; F32.9 Major depressive disorder, single episode, unspecified; Z79.899 Other long term (current) drug therapy; Z88.1 Allergy status to other antibiotic agents; Z87.891 Personal history of nicotine dependence; Z98.890 Other specified postprocedural states
CPT/HCPCS: 93971; 99284; 96372 ×2; J2270; J1885

== ENCOUNTER 2018-08-13 04:46 | Emergency (ER) | payer MEDICARE ==
[2018-08-13 05:08] VITALS: BP 174/86; PULSE 75; RESP 18; TEMP 98.2
[2018-08-13] MEDS ORDERED: HYDROmorphone 0.5 MG/0.5 ML SYRINGE IM STA (06:23)
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
--- NOTE | 2018-08-15 00:59 | CDI ---
Documentation Clarification OP Dear Dr. Maurice Mac Please do addendum to ED report for missing HPI and Physical examination. Thank you, Iris Iyer Veneer Gluer If you have any questions, please contact [facility] [facility] at [phone] [facility]
== END 2018-08-13 07:31 | disposition home or self-care (01) ==
LOC: EC 04:46
DX: G89.29 Other chronic pain (principal); M54.5 Low back pain; M79.604 Pain in right leg; E78.5 Hyperlipidemia, unspecified; I10 Essential (primary) hypertension; G62.9 Polyneuropathy, unspecified; F32.9 Major depressive disorder, single episode, unspecified; Z86.14 Personal history of Methicillin resistant Staphylococcus aureus infection; Z98.890 Other specified postprocedural states; Z87.891 Personal history of nicotine dependence; Z79.891 Long term (current) use of opiate analgesic; Z79.890 Hormone replacement therapy; Z79.899 Other long term (current) drug therapy; Z88.8 Allergy status to other drugs, medicaments and biological substances
CPT/HCPCS: 99283; 96372; J1170

== ENCOUNTER 2018-12-30 10:49 | Emergency (ER) | payer MEDICARE, OTHER ==
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
[2018-12-30 12:17] LABS: Appearance,Urine Clear (Clear); Bilirubin,Urine Negative (Negative); Blood,Urine Negative (Negative); Color,Urine Yellow; Glucose,Urine (UA) Negative (Negative); Ketones,Urine Trace (Negative); Leukocyte Esterase,Urine Negative (Negative); Nitrite,Urine Negative (Negative); PH, Urine 6.5 (5.0-8.0); Protein,Urine Trace (Negative); Specific Gravity,Urine 1.016 (1.001-1.035); Urobilinogen,Urine <2.0 mg/dL (<2.0)
[2018-12-30 12:18] LABS: Anisocytosis Slight; Basophils % (A) 0 %; Eosinophils # (A) 0.2 k/uL (0-0.7); Eosinophils % (A) 4 %; HCT 37.8 % (39.0-53.0); HGB 10.5 gm/dL (13.0-17.5); Hypochromasia Marked; Lymphocytes # (A) 1.4 k/uL (1.0-4.8); Lymphocytes % (A) 22 %; MCH 20.1 pg (25.0-35.0); MCHC 27.8 g/dL (31.0-37.0); MCV 72.3 fL (80.0-100.0); Mean Platelet Volume 6.6; Microcytosis Marked; Monocytes # (A) 0.3 k/uL (0-1.0); Monocytes % (A) 5 %; Neutrophils # (A) 4.3 k/uL (1.3-7.7); Neutrophils % (A) 67 %; Platelet Count 442 k/uL (150-450); Poikilocytosis Slight; RBC 5.23 m/uL (4.30-5.90); RDW 19.5 % (11.5-15.5); WBC 6.4 k/uL (3.8-10.6)
[2018-12-30 12:23] LABS: Anion Gap 9 mmol/L; Blood Urea Nitrogen 7 mg/dL (9-20); Calcium 8.3 mg/dL (8.4-10.2); Carbon Dioxide 25 mmol/L (22-30); Chloride 110 mmol/L (98-107); Glucose 77 mg/dL (74-99); Potassium 3.9 mmol/L (3.5-5.1); Sodium 144 mmol/L (137-145)
[2018-12-30 12:28] LABS: Alcohol 226 mg/dL
[2018-12-30 12:34] LABS: Amphetamine Screen,Urine Not Detected (NotDetected); Barbiturate Screen,Urine Not Detected (NotDetected); Benzodiazepines Screen,Urine Not Detected (NotDetected); Cocaine Screen,Urine Not Detected (NotDetected); Methadone Screen, Urine Not Detected (NotDetected); Opiate Screen,Urine Detected (NotDetected); Oxycodone Screen, Urine Not Detected (NotDetected); Phencyclidine Screen,Urine Not Detected (NotDetected); Tricyclic Antidepressant,Urine Detected (NotDetected); Urn Cannabinoid Scrn Not Detected (NotDetected)
[2018-12-30 21:38] VITALS: BP 167/72; PULSE 89; RESP 18; TEMP 98.2
== END 2018-12-30 22:41 | disposition home or self-care (01) ==
LOC: EC 10:49 → EEVIPCON 10:49 → EC 22:41
DX: F10.129 Alcohol abuse with intoxication, unspecified (principal); R45.1 Restlessness and agitation; E78.5 Hyperlipidemia, unspecified; I10 Essential (primary) hypertension; M54.9 Dorsalgia, unspecified; G89.29 Other chronic pain; G62.9 Polyneuropathy, unspecified; Z86.14 Personal history of Methicillin resistant Staphylococcus aureus infection; Z99.3 Dependence on wheelchair; Z79.891 Long term (current) use of opiate analgesic; Z79.51 Long term (current) use of inhaled steroids; Z79.899 Other long term (current) drug therapy; Z88.1 Allergy status to other antibiotic agents
CPT/HCPCS: 82075; 36415; 93005; 80048; 85025; 81003; 80306; 99285; G0480; 80320

== ENCOUNTER → 2020-03-23 | Outpatient (CLI) | payer MEDICARE ==
--- NOTE | 2020-03-24 17:59 | ECHOF ---
Referral Reason:C34.90 Non small cell lung cancer MEASUREMENTS -------- HEIGHT: 165.1 cm WEIGHT: 64.4 kg BP: RVIDd: 3.7 cm (< 3.3) IVSd: 0.8 cm (0.6 - 1.1) LVIDd: 4.2 cm (3.9 - 5.3) LVPWd: 1.3 cm (0.6 - 1.1) IVSs: 1.2 cm LVIDs: 3.1 cm LVPWs: 1.1 cm LA Diam: 3.6 cm (2.7 - 3.8) LAESV Index (A-L): 22.59 ml/m Ao Diam: 3.4 cm (2.0 - 3.7) AV Cusp: 1.4 cm (1.5 - 2.6) MV EXCURSION: 16.659 mm (> 18.000) MV EF SLOPE: 54 mm/s (70 - 150) EPSS: 0.2 cm MV E Michael: 0.35 m/s MV DecT: 316 ms MV A Michael: 0.79 m/s MV E/A Ratio: 0.44 AV maxP.75 mmHg AV meanP.85 mmHg RAP: 5.00 mmHg RVSP: 19.65 mmHg FINDINGS -------- Sinus rhythm. This was a technically good study. The left ventricular size is normal. There is mild concentric left ventricular hypertrophy. Overa ll left ventricular systolic function is low-normal with, an EF between 50 - 55 %. The right ventricle is normal in size. The left atrial size is normal. The right atrial size is normal. There is mild aortic stenosis present. Peak/mean gradient across the Aortic Valve is 13.75mmHg / 6. 85mmHg. Mild mitral regurgitation is present. Mild tricuspid regurgitation present. Right ventricular systolic pressure is normal at < 35 mmHg. There is no pulmonic regurgitation present. The aortic root size is normal. There is no pericardial effusion. CONCLUSIONS -------- 1. The left ventricular size is normal. 2. There is mild concentric left ventricular hypertrophy. 3. Overall left ventricular systolic function is low-normal with, an EF between 50 - 55 %. 4. The right ventricle is normal in size. 5. The left atrial size is normal. 6. The right atrial size is normal. 7. There is mild aortic stenosis present. 8. Peak/mean gradient across the Aortic Valve is 13.75mmHg / 6.85mmHg. 9. Mild mitral regurgitation is present. 10. Mild tricuspid regurgitation present. PHOTOGRAPHY SPOTTER: Syeda Queen RDCS
== END | disposition home or self-care (01) ==
LOC: RADECHMAIN 15:02
PROVIDERS: ATTEND Internal Medicine
DX: I08.1 Rheumatic disorders of both mitral and tricuspid valves (principal)
CPT/HCPCS: 93306